=== PATIENT | female | born 1990 | race Caucasian/White ===

== ENCOUNTER 2023-11-05 12:22 | Outpatient (CLI) | payer OTHER | END 2023-11-05 13:13 | disposition home or self-care (01) | LOC: NST 12:22 | PROVIDERS: ATTEND Obstetrics & Gynecology Gynecology | DX: Z34.83 Encounter for supervision of other normal pregnancy, third trimester (principal) ==

== ENCOUNTER 2023-11-08 04:37 | Outpatient (CLI) | payer OTHER ==
[~2023-11-08] VITALS: Ht 160 cm; Wt 79.8 kg
[2023-11-08] MEDS ORDERED: PRENATAL TABLE1 EAC4 PO (04:41)
[2023-11-08] MEDS ORDERED: LABETALOL HCL100 MG PO (04:41)
[2023-11-08] MEDS ORDERED: LABETALOL HCL 100 MG TABLET PO SCH (08:00)
== END 2023-11-08 11:07 | disposition home or self-care (01) ==
LOC: OBS/DEL 04:37
PROVIDERS: ATTEND Obstetrics & Gynecology Gynecology
DX: O47.1 False labor at or after 37 completed weeks of gestation (principal); Z3A.37 37 weeks gestation of pregnancy

== ENCOUNTER 2023-11-10 10:47 | Inpatient (IN) | payer OTHER ==
[~2023-11-10] VITALS: Ht 160 cm; Wt 80.3 kg
[~2023-11-10 10:47] MED LIST: LABETALOL HCL100 MG PO; PRENATAL TABLE1 EAC4 PO
[2023-11-10] MEDS ORDERED: MISOPROSTOL 25 MCG TABLET VAG ONE ×2 (12:00→15:00)
[2023-11-10] MEDS ORDERED: RINGERS SOLUTION,LACTATED 1,000 ML IV SCH (12:00)
[2023-11-10] MEDS ORDERED: MORPHINE SULFATE 4 MG/ML CARTRIDGE IV PRN (12:00)
[2023-11-10 12:46] LABS: HEMATOCRIT 32.3 % (36.0-45.00); MEAN CELL VOLUME 88.5 fL (80.00-100.00); MEAN CORPUSCULAR HEMOGLOBIN 30.1 pg (27.00-32.0); PLATELET COUNT 219 K/uL (150-450); RED BLOOD COUNT 3.64 M/uL (4.00-6.00); RED CELL DISTRIBUTION WIDTH 14.8 % (11.5-14.5)
[2023-11-10 12:52] LABS: PH,URINE 6.5 (5.0-8.0); URINE APPEARANCE Clear; URINE BILIRRUBIN Negative (NEGATIVE); URINE BLOOD Small; URINE COLOR Yellow; URINE GLUCOSE Negative (NEGATIVE); URINE LEUKOCYTE Moderate; URINE NITRATE Negative; URINE PROTEIN Negative (NEGATIVE); URINE UROBILINOGEN 0.2 E.U./dl
[2023-11-10 12:56] LABS: URINE BACTERIA 1655.3 uL (0.0-1933); URINE EPITHELIAL CELLS 14.9 uL (0.0-38.8); URINE RBC 2.7 uL (0.0-20.8); URINE WBC 65.8 uL (0.0-23.2)
[2023-11-10 13:30] LABS: ALBUMIN 2.6 gm/dL (3.4-5.0); BILIRUBIN TOTAL 0.22 mg/dL (0.3-1.2); CALCIUM 9.3 mg/dL (8.5-10.1); CREATININE SERUM 0.6 mg/dL (0.55-1.02); GFR 115.13; GLOBULINA 3.4 G/DL (2.4-3.5); POTASSIUM 4.37 mEq/L (3.5-5.1)
[2023-11-10 13:35] LABS: INR < 0.93; PARTIAL THROMBOPLASTIN TIME 25.6 SECONDS (22.0-34.0); PROTHROMBIN TIME 9.4 SECONDS (9.0-11.5)
[2023-11-10] MEDS ORDERED: LABETALOL HCL 200 MG TABLET PO SCH (21:00)
[2023-11-11] MEDS ORDERED: OXYTOCIN 1,000 ML IV ONE ×2 (05:45→14:15)
[2023-11-11] MEDS ORDERED: OXYTOCIN 500 ML IV ONE (05:45)
[2023-11-11] MEDS ORDERED: CHLORHEXIDINE GLUCONATE 120 ML BOTTLE TOP ONE (08:29)
[2023-11-11] MEDS ORDERED: ERYTHROMYCIN BASE 1 GM TUBE OP ONE (08:29)
[2023-11-11] MEDS ORDERED: hydrALAZINE HCL 20 MG VIAL IV ONE (10:00)
[2023-11-11] MEDS ORDERED: LABETALOL HCL 20MG/4ML SYRINGE IV ONE (10:00)
[2023-11-11] MEDS ORDERED: MORPHINE SULFATE 4 MG/ML VIAL IV ONE (10:45)
[2023-11-11] MEDS ORDERED: MORPHINE SULFATE 2 MG/ML CARTRIDGE IV ONE (11:45)
[2023-11-11] MEDS ORDERED: NALOXONE HCL 0.4 MG/ML AMPUL ONE (13:04)
[2023-11-11] MEDS ORDERED: ERYTHROMYCIN BASE 1 GM TUBE OP SCH (13:30)
[2023-11-11] MEDS ORDERED: CHLORHEXIDINE GLUCONATE 120 ML BOTTLE TOP SCH (13:30)
[2023-11-11] MEDS ORDERED: LIDOCAINE HCL 1% 200MG/20ML VIAL IJ SCH (13:30)
[2023-11-11] MEDS ORDERED: IBUprofen 400 MG TABLET PO PRN (13:30)
[2023-11-11] MEDS ORDERED: NALOXONE HCL 0.4 MG/ML AMPUL IM ONE (13:45)
[2023-11-12 07:09] LABS: ALBUMIN 2.4 gm/dL (3.4-5.0); BILIRUBIN TOTAL 0.31 mg/dL (0.3-1.2); CALCIUM 8.2 mg/dL (8.5-10.1); CREATININE SERUM 0.7 mg/dL (0.55-1.02); GFR 96.37; GLOBULINA 2.9 G/DL (2.4-3.5); POTASSIUM 3.86 mEq/L (3.5-5.1); TOTAL PROTEIN 5.3 gm/dL (6.4-8.2)
[2023-11-12 07:22] LABS: HEMATOCRIT 26.6 % (36.0-45.00); MEAN CELL VOLUME 88.7 fL (80.00-100.00); MEAN CORPUSCULAR HEMOGLOBIN 29.7 pg (27.00-32.0); MEAN CORPUSCULAR HGB CONC 33.5 g/dl (32.0-36.0); PLATELET COUNT 207 K/uL (150-450); RED BLOOD COUNT 2.99 M/uL (4.00-6.00); RED CELL DISTRIBUTION WIDTH 14.6 % (11.5-14.5)
[2023-11-12 07:42] LABS: HEMOGLOBIN 8.9 g/dL (12.0-15.00)
[2023-11-12] MEDS ORDERED: IRON FUM,PS/FOLIC/BCOMP,C NO.9 1 CAP CAPSULE PO SCH (09:00)
== END 2023-11-13 14:42 | disposition home or self-care (01) | DRG 807 ==
LOC: LDR 10:47 → OB/GYN 11-11 19:13
PROVIDERS: Obstetrics & Gynecology; ADMIT Obstetrics & Gynecology Gynecology; ATTEND Obstetrics & Gynecology Gynecology
PROC: 4A1HXCZ Monitoring of Products of Conception, Cardiac Rate, External Approach (ICD-10-PCS; 2023-11-10)
PROC: 3E033VJ Introduction of Other Hormone into Peripheral Vein, Percutaneous Approach (ICD-10-PCS; 2023-11-10)
PROC: 10E0XZZ Delivery of Products of Conception, External Approach (ICD-10-PCS; principal; 2023-11-11)
PROC: 0KQM0ZZ Repair Perineum Muscle, Open Approach (ICD-10-PCS; 2023-11-11)
PROC: 3E0P7VZ Introduction of Hormone into Female Reproductive, Via Natural or Artificial Opening (ICD-10-PCS; 2023-11-11)
DX: O70.1 Second degree perineal laceration during delivery (principal); Z37.0 Single live birth; Z3A.37 37 weeks gestation of pregnancy; Z20.822 Contact with and (suspected) exposure to COVID-19